=== PATIENT | female | born 1955 | race Two or more races ===

== ENCOUNTER 2019-06-29 21:13 | Emergency (ER) | payer OTHER ==
[~2019-06-29] VITALS: Ht 157.5 cm; Wt 54.5 kg
[2019-06-29 21:18] VITALS: BP 161/91
== END 2019-06-29 21:35 | disposition left against medical advice (07) ==
LOC: EMS 21:15
DX: T17.208A Unspecified foreign body in pharynx causing other injury, initial encounter (principal); Z53.21 Procedure and treatment not carried out due to patient leaving prior to being seen by health care provider; X58.XXXA Exposure to other specified factors, initial encounter; Y93.89 Activity, other specified; Y92.89 Other specified places as the place of occurrence of the external cause; Y99.8 Other external cause status